=== PATIENT | male | born 2000 | race Caucasian/White ===

== ENCOUNTER 2024-08-10 22:13 | Emergency (ER) | payer OTHER ==
[2024-08-10 22:18] VITALS: BP 121/72; PULSE 76; RESP 20; TEMP 98.5; BMI 26.5
[2024-08-10] MEDS: IBUPROFEN 600 MG TABLET (FP) PO ONE (22:51)
== END 2024-08-10 22:53 | disposition home or self-care (01) ==
LOC: JERFT 22:13
DX: M79.641 Pain in right hand (principal); M79.89 Other specified soft tissue disorders; W01.0XXA Fall on same level from slipping, tripping and stumbling without subsequent striking against object, initial encounter
CPT/HCPCS: 73110-TC-RT-FY; 73130-TC-RT-FY; 99283-25

== ENCOUNTER 2024-11-24 08:22 | Emergency (ER) | payer OTHER ==
[2024-11-24] MEDS ORDERED: KETOROLAC TROMETHAMINE 30 MG/1 ML VIAL IM ONE (09:15)
[2024-11-24] MEDS ORDERED: KETOROLAC TROMETHAMINE 30 MG/1 ML VIAL ONE (10:34)
[2024-11-24] MEDS ORDERED: IBUPROFEN 400 MG TABLET (FP) PO ONE (10:35)
[2024-11-24] MEDS: IBUPROFEN 400 MG TABLET (FP) PO ONE (10:38)
[2024-11-24 11:31] VITALS: BP 110/68; PULSE 68; RESP 17; TEMP 98; BMI 26.5
== END 2024-11-24 11:24 | disposition home or self-care (01) ==
LOC: JER 08:22
DX: R07.81 Pleurodynia (principal)
CPT/HCPCS: 71046-TC-FY; 93005; 93010; 99284-25